=== PATIENT | female | born 1975 | race Caucasian/White ===

== ENCOUNTER 2024-12-31 20:11 | Emergency (ER) | payer OTHER ==
[2024-12-31 20:22] VITALS: BP 162/108; PULSE 77; RESP 18; TEMP 98.1; BMI 41.3
[2024-12-31] MEDS ORDERED: LIDOCAINE PATCH REMOVAL MC SCH (22:00)
[2024-12-31] MEDS ORDERED: LIDOCAINE 4% PATCH TP ONE (22:01)
[2024-12-31] MEDS ORDERED: predniSONE 10 MG TABLET (UD) ONE (22:02)
[2024-12-31] MEDS ORDERED: ACETAMINOPHEN 500 MG TABLET (FP) ONE (22:02)
[2024-12-31] MEDS ORDERED: predniSONE 20 MG TABLET (UD) ONE (22:02)
[2024-12-31] MEDS: LIDOCAINE 5% TOPICAL PATCH TP ONE (22:06)
[2024-12-31] MEDS: predniSONE 20 MG TABLET (UD) PO ONE (22:06)
[2024-12-31] MEDS: ACETAMINOPHEN 500 MG TABLET (FP) PO ONE (22:07)
== END 2025-01-01 00:14 | disposition home or self-care (01) ==
LOC: JERFT 20:11
DX: M25.562 Pain in left knee (principal); M25.462 Effusion, left knee
CPT/HCPCS: 99283-25